=== PATIENT | female | born 1995 | race Caucasian/White ===

== ENCOUNTER 2024-09-25 12:28 | Emergency (ER) | payer OTHER, SELFPAY ==
[2024-09-25 12:46] VITALS: BP 118/79; PULSE 119; RESP 16; TEMP 36.4; O2SAT 100
--- NOTE | 2024-09-25 13:02 | ED_ITS ---
HPI - Nausea/Vomiting/Diarrhea General Chief complaint: Nausea/Vomiting/Diarrhea Stated complaint: vomiting liquid Time Seen by Provider: 09/25/24 12:55 Source: patient Mode of arrival: ambulatory Limitations: no limitations History of Present Illness HPI Narrative: Shalonda is a 29-year-old female patient presenting to the clinic today with complaints of nausea and vomiting. Symptoms started around 6:00 a.m. this morning. She states she has vomited 6 times. She is concerned that she may be dehydrated. Is having abdominal discomfort due to nausea. Last menstrual period was last week. She denies any urinary symptoms or vaginal discharge. She denies any URI symptoms. Last BM was yesterday and normal for the patient. Related Data Home Medications Medication Instructions Recorded Confirmed fluoxetine 10 mg capsule 10 mg PO DAILY 09/25/24 09/25/24 Allergies Allergy/AdvReac Type Severity Reaction Status Date / Time No Known Allergies Allergy Mild Verified 09/25/24 12:32 Review of Systems Review of Systems: Pertinent positives per HPI. Patient denies any fever, chills, rash, headache, visual changes, dizziness, cough, runny nose, sore throat, shortness of breath, chest pain, palpitations, diarrhea, constipation, abdominal pain, or any urinary issues. PMFSH Comments At the time of my signature, I reviewed and agree with the nursing past medical, surgical, social, and family history. There is no relevant family history pertinent to the patient complaint. Exam Narrative: General: Well-developed, well nourished, in no apparent distress Head: Normocephalic, atraumatic Eyes: Pupils equally round and reactive to light bilaterally, EOM intact, sclera and conjunctive clear, no discharge, lids normal Ears: TMs intact and clear, ear canals clear, no drainage, grossly hearing normal. Nose: Nares patent, no discharge, no inflammation, no sinus tenderness. Mouth: Oropharynx without lesions or masses, good dentition, MM dry. Neck: Supple, trachea midline, no enlargement of anterior or posterior cervical nodes, no thyroid masses or goiter palpable. Cardio: Tachycardic- Regular rate and rhythm, s1 and s2 normal, no murmur appreciated. Resp: Clear to auscultation bilaterally anteriorly and posteriorly, no rhonchi, rales, wheezing or rubs Abdomen: Soft, pliable, bowel sounds present in all quadrants, non-tender to palpation, no organomegly, no CVAT tenderness. Course Course Emergency Course: Portions of this record may have been created with voice recognition software. Level of Care: Express Care Visit Vital Signs Vital signs: Vital Signs Temperature 36.4 C 09/25/24 12:46 Pulse Rate 119 H 09/25/24 12:46 Respiratory Rate 16 09/25/24 12:46 Blood Pressure 118/79 09/25/24 12:46 Pulse Oximetry 100 09/25/24 12:46 Oxygen Delivery Room Air 09/25/24 12:46 Temperature 36.4 C 09/25/24 12:46 Pulse Rate 119 H 09/25/24 12:46 Respiratory Rate 16 09/25/24 12:46 Blood Pressure 118/79 09/25/24 12:46 Pulse Oximetry 100 09/25/24 12:46 Oxygen Delivery Room Air 09/25/24 12:46 Vital signs reviewed MDM - Nausea/Vomiting/Diarrhea MDM Narrative Medical decision making narrative: At the time of visit patient is resting comfortably on the exam table. Patient appears to be nontoxic. Labs: Influenza test was positive for influenza A. UA/bedside test ordered-patient declined and wanted to be discharged before giving a urine sample Medications: Zofran 4 mg ODT given in the clinic today. Plan: Patient has influenza A with acute nausea/ vomiting. Patient appears mildly dehydrated. Heart rate is 119 beats per minute and she has dry mucous membranes. Prescription for Zofran and Tamiflu was sent to the pharmacy. Supportive measures were discussed with the patient and they voiced understanding discharge instructions and agrees to treatment plan. Return precautions reviewed Differential Diagnosis Differential diagnosis: Likely traveler's diarrhea, food poisoning, gastroenteritis, clostridium difficile infection, drug-induced nausea and vomiting, dehydration and other (COVID) Lab Data Labs: Lab Results 09/25/24 Range/Units 13:16 POC Influenza A Ag Positive (Negative) POC Influenza B Ag Negative (Negative) Discharge Plan Discharge Clinical Impression: Influenza A, Acute nausea with nonbilious vomiting, Mild dehydration Patient Disposition: Home, Self-Care Condition: Stable Instructions: Antibiotic Form, Influenza (ED), Acute Nausea and Vomiting (ED) Additional Instructions: Influenza test was positive for influenza A. You declined having your urine tested in the clinic today. Take prescription medications only as prescribed-Zofran and Tamiflu Increase fluids and stay well hydrated Tylenol/motrin for pain/fever Flonase and OTC antihistamines as directed Vicks vapor rub to open sinuses Sinus rinses for congestion Cepacol spray, cough drops, throat lozenges, warm tea with honey/lemon, gargle salt water to soothe throat BRAT diet for diarrhea Clear liquids x 24 hours then advance as tolerated for nausea/vomiting Go to the ED if you develop a worsening in your condition- high fever not controlled by Tylenol or Motrin, dehydration, weakness, lethargy, shortness of breath, or chest pain. Follow up with your PCP in 3-5 days if symptoms persist. Prescriptions: New ondansetron 4 mg tablet,disintegrating 4 mg PO Q6H PRN (Reason: nausea and vomiting) 3 Days Qty: 12 0RF oseltamivir [Tamiflu] 75 mg capsule 75 mg PO Q12H 5 Days Qty: 10 0RF No Action fluoxetine 10 mg capsule 10 mg PO DAILY Follow-up/Referrals: John,Tessie Coughlin, [facility] [Primary Care Provider] - Stand Alone Forms: Work/School Release IP Time of Disposition: 13:29 Quality NIHSS Nursing Documentation ED NIHSS nursing documentation: reviewed/agree
[2024-09-25 13:18] LABS: EDINFLUASCREEN Positive (Negative); EDINFLUBSCREEN Negative (Negative)
[2024-09-25] MEDS: ONDANSETRON HCL ODT 4 MG TABLET SUBLINGUAL (13:21)
== END 2024-09-25 13:31 | disposition home or self-care (01) ==
PROVIDERS: Emergency Provider Nurse Practitioner Family; PCP Nurse Practitioner Family
DX: J10.1 Influenza due to other identified influenza virus with other respiratory manifestations (principal); R11.2 Nausea with vomiting, unspecified; E86.0 Dehydration; F41.9 Anxiety disorder, unspecified; F32.A Depression, unspecified; Z86.16 Personal history of COVID-19
CPT/HCPCS: 87804; 99203; A9270; G0463